=== PATIENT | male | born 1970 | race Caucasian/White ===

== ENCOUNTER 2016-11-16 09:26 | Emergency (ER) | payer SELFPAY ==
[~2016-11-16] VITALS: Ht 165.1 cm; Wt 90.3 kg
[~2016-11-16 09:26] MED LIST: Z.0.NO CURRENT MEDS
[2016-11-16 09:48] VITALS: BP 149/101; PULSE 81; RESP 16; TEMP 98.9; O2SAT 97
[2016-11-16 10:12] LABS: BLOOD, URINE LARGE (NEG); GLUCOSE,URINE NEG (NEG); KETONE, URINE NEG (NEG); NITRITE,URINE NEG (NEG); PH, URINE 5.5 (5.0-8.5)
[2016-11-16 10:13] LABS: METHOD OF COLLECTION CLEAN CATCH; URINE COLOR YELLOW (YELLW/STRAW)
[2016-11-16 10:17] LABS: RBC, URINE 100-200 /hpf (0-3)
[2016-11-16 10:18] LABS: COMMENT (UR) CULT NOT INDICATED; COMMENT2 (UR) MUCOUS PRESENT; CULTURE IF INDICATED CULT NOT INDICATED; TRANSITIONAL EPI CELLS, URINE 0-5 /hpf
--- NOTE | 2016-11-16 10:19 | PD ---
HPI Chief Complaint: Flank/Kidney Pain Time Seen by Provider: 10:18 Travel History International Travel<30 days: No Contact w/Intl Traveler<30days: No Traveled to known affect area: No History of Present Illness HPI Patient presents with complaints of right flank pain radiating to the groin since last night. Described as colicky. Minimal nausea, no vomiting. History of kidney stones. Previous imaging studies revealed all stones are less than 5 mm. Patient is already followed by urology. Urinating without difficulty. Currently on no medications. PFSH Past Medical History Hx Anticoagulant Therapy: Yes (asa 81mg) Diminished Hearing: No Kidney Stones: Yes Immunizations Current: Yes Influenza Vaccination: No Past Surgical History Other Surgery: Yes (left inguinal hernia repair as child) Social History Alcohol Use: No Tobacco Use: No (never) Substance Use: No Allergies-Medications (Allergen,Severity, Reaction): Coded Allergies: No Known Allergies (Verified , 11/16/16) Reported Meds & Prescriptions Reported Meds & Active Scripts Active No Active Prescriptions or Reported Medications Review of Systems Genitourinary: Positive: Flank Pain Physical Exam Narrative GENERAL: Well-nourished, well-developed patient. SKIN: Warm and dry. HEAD: Normocephalic. EYES: No scleral icterus. No injection or drainage. NECK: Supple, trachea midline. No JVD or lymphadenopathy. CARDIOVASCULAR: Regular rate and rhythm without murmurs, gallops, or rubs. RESPIRATORY: Breath sounds equal bilaterally. No accessory muscle use. GASTROINTESTINAL: Abdomen soft, non-tender, nondistended. MUSCULOSKELETAL: No cyanosis, or edema. BACK: Nontender without obvious deformity. No CVA tenderness. Data Data Last Documented VS Vital Signs Date Time Temp Pulse Resp B/P Pulse Ox O2 Delivery O2 Flow Rate FiO2 11/16/16 09:48 98.9 81 16 149/101 97 Orders Urinalysis - C+S If Indicated (11/16/16 09:43) Ketorolac Inj (Toradol Inj) (11/16/16 10:30) Labs Laboratory Tests Test 11/16/16 10:00 Urine Collection Type CLEAN CATCH Urine Color YELLOW Urine Turbidity MOD Urine pH 5.5 Urine Specific [place] 1.024 Urine Protein 100 mg/dL Urine Glucose (UA) NEG mg/dL Urine Ketones NEG mg/dL Urine Occult Blood LARGE Urine Nitrite NEG Urine Bilirubin NEG Urine Leukocyte Esterase NEG Urine RBC 100-200 /hpf Urine Squamous Epithelial 6-8 /hpf Cells Urine Transitional Epithelial 0-5 /hpf Cells Urine Amorphous Sediment MOD Urine Fine Granular Casts 0-2 /lpf Microscopic Urinalysis Comment CULT NOT INDICATED Urine Collection Time 1000 MDM Medical Decision Making Medical Screen Exam Complete: Yes Emergency Medical Condition: Yes Differential Diagnosis Nephrolithiasis, UTI, hematuria, muscle strain Narrative Course Assessment and plan discussed with patient and at bedside. Diagnosis Primary Impression: Right nephrolithiasis Patient Instructions: General Instructions Additional Instructions: Fluids fluids fluids. Pain medication and antinausea medication as needed. Follow-up with urology Med/Other Pt SpecificInfo: Prescription(s) given Scripts Ondansetron (Zofran)4 Mg Tab4 Mg PO Q6HR PRN (NAUSEA OR VOMITING) #20 TAB Ref 0 Prov:Earnest Dorman MD 11/16/16 Hydrocodone-Acetaminophen 5-325 mg Tab1 Tab PO Q4H PRN (PAIN) #30 TAB Ref 0 Prov:Earnest Dorman MD 11/16/16 Tamsulosin (Flomax)0.4 Mg Cap0.4 Mg PO HS #30 CAP Ref 0 Prov:Earnest Dorman MD 11/16/16 Disposition: 01 DISCHARGE HOME Condition: Good Earnest Dorman MD Nov 16, 2016 10:19
[2016-11-16] MEDS ORDERED: ZOFR4TAB PO (10:24)
[2016-11-16] MEDS ORDERED: TAMS5CAP PO (10:24)
[2016-11-16] MEDS ORDERED: HYDR-3516 PO (10:24)
[2016-11-16] MEDS ORDERED: KETOROLAC TROMETHAMINE 60 MG/2 ML (IM) VIAL IM ONE (10:30)
[2016-11-16 10:45] VITALS: BP 145/96
== END 2016-11-16 10:46 | disposition home or self-care (01) ==
LOC: PHED 09:26
DX: N20.0 Calculus of kidney (principal); Z87.442 Personal history of urinary calculi; Z79.01 Long term (current) use of anticoagulants
CPT/HCPCS: 81001; 96372; 99284; J1885